=== PATIENT | female | born 1950 | race Caucasian/White ===

== ENCOUNTER 2022-06-03 14:59 | Outpatient (RCR) | payer MEDICARE, BC ==
[2022-06-07] MEDS ORDERED: LOSARTAN POTAS100 MG PO (14:16)
[2022-06-07] MEDS ORDERED: MULTI-VITAMIN1 EACH PO (14:16)
[2022-06-07] MEDS ORDERED: ZETIA10 MG PO (14:16)
[2022-06-07] MEDS ORDERED: ASPIRIN81 MG PO (14:16)
[2022-06-07] MEDS ORDERED: METFORMIN HCL500 M1 PO (14:16)
[2022-06-07] MEDS ORDERED: BIOTIN2500 MCG PO (14:16)
[2022-06-07] MEDS ORDERED: GLUCOSAMINE1000 MG PO (14:16)
[2022-06-07] MEDS ORDERED: CRESTOR10 MG PO (14:16)
[2022-06-07] MEDS ORDERED: JARDIANCE10 MG PO (14:16)
[2022-06-07] MEDS ORDERED: OMEPRAZOLE20 M1 PO (14:16)
[2022-06-07] MEDS ORDERED: CLOPIDOGREL75 MG PO (14:16)
== END 2022-06-09 ==
LOC: OT 14:59
PROVIDERS: ATTEND Specialist
DX: M75.102 Unspecified rotator cuff tear or rupture of left shoulder, not specified as traumatic (principal); M75.42 Impingement syndrome of left shoulder

== ENCOUNTER → 2022-06-09 | Day surgery (SDC) | payer MEDICARE, BC ==
[2022-06-08 10:39] LABS: BASOPHILS % 0.2 % (0.0-1.0); EOSINOPHILS # (AUTO) 0.1 (0.0-0.4); EOSINOPHILS % 1.4 % (0.0-6.0); HEMATOCRIT 38.9 % (34.2-44.1); HEMOGLOBIN 12.8 g/dL (12.0-16.0); LYMPHOCYTES # (AUTO) 1.4 (1.0-3.2); LYMPHOCYTES % 31.9 % (18.0-39.1); MEAN CORPUSCULAR HEMOGLOBIN 31.8 pg (28-32); MEAN CORPUSCULAR HGB CONC 32.9 g/dL (31-35); MEAN CORPUSCULAR VOLUME 96.8 fL (81-99); MONOCYTES # (AUTO) 0.4 (0.2-0.8); MONOCYTES % 8.5 % (4.4-11.3); NEUTROPHILS # (AUTO) 2.4 (2.1-6.9); NEUTROPHILS % 57.8 % (38.7-80.0); PLATELET COUNT 175 x10e3/uL (140-360); RED BLOOD COUNT 4.02 x10e6/uL (3.6-5.1)
[~2022-06-09] MED LIST: ASPIRIN81 MG PO; BIOTIN2500 MCG PO; CLOPIDOGREL75 MG PO; CRESTOR10 MG PO; DEXTROSE 5% 250ML 250 ML IV ONE; GLUCAGON FOR INJ 1 MG VIAL ONE; GLUCOSAMINE1000 MG PO; HYOSCYAMINE SULFATE 0.5 MG/ML INJ ONE; JARDIANCE10 MG PO; LIDOCAINE HCL 2% LOCAL INJ 5 ML SDV VIAL INJ ONE; LOSARTAN POTAS100 MG PO; METFORMIN HCL500 M1 PO; MIDAZOLAM HCL 2 MG/2 ML VIAL ONE; MULTI-VITAMIN1 EACH PO; OMEPRAZOLE20 M1 PO; PROPOFOL IV EMULSION 10 MG/ML 20 ML VIAL ONE; ZETIA10 MG PO
[2022-06-09 12:30] VITALS: BP 139/70
== END | disposition home or self-care (01) ==
LOC: OR 08:30
PROVIDERS: ATTEND Internal Medicine Gastroenterology
DX: K29.50 Unspecified chronic gastritis without bleeding (principal); K31.7 Polyp of stomach and duodenum; K20.90 Esophagitis, unspecified without bleeding; K21.9 Gastro-esophageal reflux disease without esophagitis; R97.0 Elevated carcinoembryonic antigen [CEA]; K44.9 Diaphragmatic hernia without obstruction or gangrene; K59.00 Constipation, unspecified; K57.30 Diverticulosis of large intestine without perforation or abscess without bleeding; K64.8 Other hemorrhoids; R63.4 Abnormal weight loss; I25.810 Atherosclerosis of coronary artery bypass graft(s) without angina pectoris; I10 Essential (primary) hypertension; E78.5 Hyperlipidemia, unspecified; E11.9 Type 2 diabetes mellitus without complications; Z88.6 Allergy status to analgesic agent; Z01.810 Encounter for preprocedural cardiovascular examination; Z01.812 Encounter for preprocedural laboratory examination; Z20.822 Contact with and (suspected) exposure to COVID-19; Z98.61 Coronary angioplasty status; Z95.1 Presence of aortocoronary bypass graft
CPT/HCPCS: 0223U; 36415 ×2; 43239; 45378; 82948; 85025; 88305; 88342; 93005; C9113; J1610; J1980; J2001; J2250; J2704; J7070; 88304; 88312

== ENCOUNTER 2022-06-24 13:57 | Outpatient (RCR) | payer MEDICARE, BC ==
[~2022-06-24 13:57] MED LIST changes: -DEXTROSE 5% 250ML 250 ML IV ONE; -GLUCAGON FOR INJ 1 MG VIAL ONE; -HYOSCYAMINE SULFATE 0.5 MG/ML INJ ONE; -LIDOCAINE HCL 2% LOCAL INJ 5 ML SDV VIAL INJ ONE; -MIDAZOLAM HCL 2 MG/2 ML VIAL ONE; -PROPOFOL IV EMULSION 10 MG/ML 20 ML VIAL ONE
== END 2022-07-09 ==
LOC: OT 13:57
PROVIDERS: ATTEND Specialist
DX: M75.102 Unspecified rotator cuff tear or rupture of left shoulder, not specified as traumatic (principal); M19.012 Primary osteoarthritis, left shoulder; M75.42 Impingement syndrome of left shoulder

== ENCOUNTER → 2023-04-13 | Day surgery (SDC) | payer MEDICARE, BC ==
[~2023-04-13] MED LIST changes: +FENTANYL CITRATE/PF 100MCG/2 ML INJ ONE; +LACTATED RINGER'S 1,000 ML ONE; +MIDAZOLAM HCL 2 MG/2 ML VIAL ONE; +OR PHACO EYE KIT ONE; +PREOP PHACO EYE KIT ONE
[2023-04-13 13:25] VITALS: BP 124/58; PULSE 64; RESP 16; O2SAT 99
== END | disposition home or self-care (01) ==
LOC: OR 09:27
PROVIDERS: ATTEND Ophthalmology
DX: H25.12 Age-related nuclear cataract, left eye (principal); G47.33 Obstructive sleep apnea (adult) (pediatric); E11.9 Type 2 diabetes mellitus without complications; I10 Essential (primary) hypertension; I25.810 Atherosclerosis of coronary artery bypass graft(s) without angina pectoris; E78.5 Hyperlipidemia, unspecified; K21.9 Gastro-esophageal reflux disease without esophagitis; Z88.6 Allergy status to analgesic agent; Z79.02 Long term (current) use of antithrombotics/antiplatelets; Z79.84 Long term (current) use of oral hypoglycemic drugs; Z79.899 Other long term (current) drug therapy; Z95.1 Presence of aortocoronary bypass graft
CPT/HCPCS: 36415; 66984; 82948; J2250; J3010; J7121; V2632